=== PATIENT | female | born 1980 | race Caucasian/White ===

== ENCOUNTER 2018-11-04 18:58 | Emergency (ER) | payer BC ==
[~2018-11-04] VITALS: Ht 175.3 cm; Wt 72.7 kg
--- NOTE | 2018-11-04 21:06 | REPVR ---
EXAM: US Right Duplex Lower Extremity Veins, Limited EXAM DATE/TIME: 11/04/2018 8:40 PM CLINICAL HISTORY: 38 years old, female; Pain; Leg, upper; Right; Additional info: Swelling/pain TECHNIQUE: Real-time Duplex ultrasound of the Right Lower Extremity with 2-D spicer scale, color Doppler flow and spectral waveform analysis. Limited exam was focused on the right lower extremity veins. COMPARISON: No relevant prior studies available. FINDINGS: Right deep veins: Unremarkable. The common femoral, femoral and popliteal veins are patent without thrombus. Normal compressibility, augmentation response and Doppler waveforms. Right superficial veins: Unremarkable. Saphenofemoral junction is patent without thrombus. Soft tissues: Skin thickening along the posterior aspect of the knee, corresponding to the patient's rash. IMPRESSION: No sonographic evidence of deep vein thrombosis. Electronically signed by: Emeka Garza On 11/04/2018 21:06:27 PM
[2018-11-04] MEDS ORDERED: BACTRIM 160MG/800MG DS TAB PO ONE (21:15)
[2018-11-04] MEDS ORDERED: BACT800T5 PO (21:17)
[2018-11-04] MEDS ORDERED: TRIA1CR80 TOP (21:17)
[2018-11-04 21:22] VITALS: BP 110/61
[2018-11-07] MEDS ORDERED: KEFL500C17 PO (08:37)
== END 2018-11-04 21:28 | disposition home or self-care (01) ==
LOC: EDBD 18:58 → M ED 18:58
DX: L03.115 Cellulitis of right lower limb (principal); L20.82 Flexural eczema